=== PATIENT | male | born 1985 | race Caucasian/White ===

== ENCOUNTER 2020-01-11 21:20 | Emergency (ER) | payer MEDICAID ==
[~2020-01-11] VITALS: Ht 175.3 cm; Wt 62.3 kg
[2020-01-11 21:28] VITALS: Ht 175.3 cm; Wt 62.3 kg
[2020-01-11] MEDS ORDERED: TRAZODONE HCL300 MG PO (21:30)
[2020-01-11 21:55] LABS: BILIRUBIN NEGATIVE (NEGATIVE); KETONE NEGATIVE (NEGATIVE); NITRITE NEGATIVE (NEGATIVE); UROBILINOGEN NORMAL mg/dL (< 2)
[2020-01-11 22:03] LABS: BASOPHILS 0.6 % (0-2); EOSINOPHILS 1.4 % (0-7); HEMATOCRIT 48.1 % (42.0-54.0); HEMOGLOBIN 15.8 g/dL (13.5-17.5); IMMATURE GRANULOCYTES 0.1 % (0-5); LYMPHOCYTES 25.5 % (15-50); MCH 28.7 pg (26.0-34.0); MCHC 32.8 g/dL (31.0-37.0); MCV 87.5 fL (80.0-100.0); MONOCYTES 5.9 % (2-11); NEUTROPHILS 66.5 % (40-80); PLATELET COUNT 204 10x3/uL (130-400)
[2020-01-11 22:04] LABS: UDS - AMPHET POSITIVE QUAL (NEGATIVE); UDS - BARB NEGATIVE QUAL (NEGATIVE); UDS - BENZO NEGATIVE QUAL (NEGATIVE); UDS - COCAINE NEGATIVE QUAL (NEGATIVE); UDS - OPIATE NEGATIVE QUAL (NEGATIVE); UDS - PCP NEGATIVE QUAL (NEGATIVE); UDS - THC NEGATIVE QUAL (NEGATIVE)
[2020-01-11 22:17] LABS: CALC OSMOLALITY 277 mosm/kg (275-300); CARBON DIOXIDE 29.9 mmol/L (21.0-32.0); CHLORIDE - SERUM 103 mmol/L (98-107); CREATININE - SERUM 0.7 mg/dL (0.6-1.3); GLUCOSE 83 mg/dL (74-106); POTASSIUM - SERUM 4.1 mmol/L (3.5-5.1); SODIUM 139 mmol/L (136-145); UREA NITROGEN 14 mg/dL (7-18); eGFR NON AFRICAN AMERICAN > 90 mL/min (90-120)
[2020-01-11 22:21] LABS: ALBUMIN 3.9 g/dL (3.4-5.0); ALKALINE PHOSPHATASE 70 U/L (30-120); ALT (SGPT) 25 U/L (10-68); BILIRUBIN - TOTAL 0.38 mg/dL (0.2-1.3); CREATINE KINASE 142 UL (21-232); MAGNESIUM - SERUM 2.1 mg/dL (1.8-2.4)
--- NOTE | 2020-01-11 23:22 | NUR ---
DR. WOODWARD NOTIFIED AND SITTER ORDERED. SITTER AT BEDSIDE. NOTIFIED CHARGE NURSE AND ATTENDING IN REGARDS TO ASSESSMENT FINDINGS, RESOURCES GIVEN TO PATIENT AND SAFETY PLAN INITIATED.
[2020-01-13 02:00] VITALS: BP 130/77
[2020-01-14 10:13] LABS: RNP ANTIBODY <0.2 AI (0.0-0.9); SMITH ANTIBODY <0.2 AI (0.0-0.9)
== END 2020-01-13 05:00 ==
LOC: D.ER 21:20
PROVIDERS: Family Medicine; Psychiatry & Neurology Psychiatry
DX: R45.851 Suicidal ideations (principal); F15.10 Other stimulant abuse, uncomplicated